=== PATIENT | female | born 1970 | race Caucasian/White ===

== ENCOUNTER 2021-08-01 19:10 | Outpatient (REF) | payer OTHER, SELFPAY ==
[2021-08-03 13:44] LABS: COVID-19 RT-PCR UVMMC Result Presumptive Positive (Negative)
== END 2021-08-01 19:11 | disposition home or self-care (01) ==
LOC: LBN 19:10
PROVIDERS: Visit Provider Physician Assistant Medical
DX: Z20.822 Contact with and (suspected) exposure to COVID-19 (principal); R05.8 Other specified cough
CPT/HCPCS: U0003

== ENCOUNTER 2021-08-05 16:36 | Outpatient (REF) | payer OTHER, SELFPAY ==
[2021-08-06 13:55] LABS: COVID-19 RT-PCR UVMMC Result Presumptive Positive (Negative)
== END 2021-08-05 16:37 | disposition home or self-care (01) ==
LOC: LBN 16:36
PROVIDERS: Visit Provider Physician Assistant Medical
DX: Z20.822 Contact with and (suspected) exposure to COVID-19 (principal); J40 Bronchitis, not specified as acute or chronic
CPT/HCPCS: U0003

== ENCOUNTER 2024-05-16 16:13 | Outpatient (REF) | payer BC, SELFPAY ==
[2024-05-16 17:32] LABS: Hemoglobin A1C 5.6 % (<5.7)
[2024-05-16 17:33] LABS: Calculated LDL 164 mg/dL (<100); Cholesterol 253 mg/dL (<200); HDL Cholesterol 69 mg/dL (40-60); Triglyceride 102 mg/dL (<150)
== END 2024-05-16 16:14 | disposition home or self-care (01) ==
LOC: NCHCN 16:13
PROVIDERS: Visit Provider Nurse Practitioner Family
DX: E66.9 Obesity, unspecified (principal)
CPT/HCPCS: 80061; 83036

== ENCOUNTER 2024-05-18 02:13 | Outpatient (CLI) | payer BC, SELFPAY ==
--- NOTE | 2024-05-18 | DI.MAMMO_ITS ---
Exam(s) MAMMO SCREENING EXAM: MAMMO SCREENING CLINICAL HISTORY: SCREENING, Z12,31 TECHNIQUE: Bilateral full field digital CC and MLO mammographic images were obtained with 3D tomosyn thesis and utilizing computer aided detection (CAD). COMPARISON: Available for comparison. FINDINGS: Masses/Architectural Distortion: None seen. Microcalcifications: No suspicious pleomorphic-type are seen. Skin Thickening/Nipple Retraction: None. IMPRESSION: 1. No significant interval change with no specific features of malignancy noted. 2. Unless there is more urgent need, screening mammography is recommended, as per [place] [employer] guidelines. BI-RADS Category 1 - Negative Breast Density - Category B - Scattered areas of fibroglandular density Breast density category C or D implies that the patient has dense breast tissue. Dense breast tissue is very common and is not abnormal but dense breast tissue can make it harder to find cancer on a ma mmogram. Also, dense breast tissue may increase their breast cancer risk. This information about the result of the mammogram report was provided to the patient to raise their awareness. Use this report when you speak with the patient about their risks for breast cancer, which includes their family hist ory. At that time, you may recommend for more screening tests (Ultrasound or MRI) as they might be us eful based on their risk. A negative radiographic report should not delay biopsy if a dominant or clinically suspicious mass is present. Up to ten percent of cancers are not identified on mammography. A negative report may reinforce clinical impression. Adenosis and dense breasts may obscure an underlying neoplasm. False positive reports average 6 to 10%. Patient will receive a letter notifying them of these results.
--- NOTE | 2024-05-18 15:55 | DI.RAD_ITS ---
Exam(s) XR HAND RT COMPLETE EXAM: XR HAND RT COMPLETE CLINICAL HISTORY: RT HAND PAIN,M79.641. TECHNIQUE: 2D digital imaging was performed. COMPARISON: No exams were available for comparison FINDINGS: 3 views No evidence of acute fracture or subluxation nor abnormal soft tissue calcifications. Bone density a ppears normal. No osseous lesions nor erosions evident. No obvious degenerative changes. IMPRESSION: No significant osseous findings in the right hand. DATA REPOSITORY: RADIATION DOSE DELIVERED:
--- NOTE | 2024-05-18 15:55 | DI.RAD_ITS ---
Exam(s) XR HAND LT COMPLETE EXAM: XR HAND LT COMPLETE CLINICAL HISTORY: LT HAND PAIN, M79.642. TECHNIQUE: 2D digital imaging was performed. COMPARISON: CR XR HAND RT COMPLETE from 05/18/2024 FINDINGS: 3 views No evidence of acute fracture nor subluxation nor abnormal soft tissue calcifications. Bone density is normal. No osseous lesions nor erosions evident. There are mild degenerative changes in the DIP joint of the 4th-ring finger. Other DIP joints appear unremarkable. IMPRESSION: Mild degenerative changes in the DIP joint of the 4th-ring finger. No other radiographic findings in the left hand. DATA REPOSITORY: RADIATION DOSE DELIVERED:
== END 2024-05-18 02:33 ==
LOC: DI 02:13
PROVIDERS: Visit Provider Nurse Practitioner Family
DX: M19.041 Primary osteoarthritis, right hand (principal); M19.042 Primary osteoarthritis, left hand
CPT/HCPCS: 77063; 77067; 73130

== ENCOUNTER 2024-07-18 09:22 | Outpatient (REF) | payer BC, SELFPAY ==
--- NOTE | 2024-07-18 08:15 | PAPFT_PTH ---
PATIENT: Donya Diaz LOC: [facility]#:[id number] AGE/SX: 54/F ROOM: RE07/18/[address]: Clara Schmidt : 1970 BED: DIS: 07/18/2024 SPEC #: [id number] RECD: 07/18/24 18:17 STATUS: ARUN REQ #: [id number] JACOB: 07/18/24 08:[address]: Clara Schmidt DEPT: [facility] Cytology RECD BY: [place] Tissues: 1 - CX/ENDOCX FOR PAP SMEARS Procedures: PAP THIN PREP/[facility] Screening HPV DNA PROBE Comments: [id number] (HPV 16 & 18/45)
== END 2024-07-18 09:23 | disposition home or self-care (01) ==
LOC: NCHCN 09:22
PROVIDERS: PCP Nurse Practitioner Family; Visit Provider Nurse Practitioner Family
DX: Z00.00 Encounter for general adult medical examination without abnormal findings (principal); Z12.4 Encounter for screening for malignant neoplasm of cervix; Z01.419 Encounter for gynecological examination (general) (routine) without abnormal findings
CPT/HCPCS: 88142; 87624

== ENCOUNTER 2024-11-14 08:39 | Outpatient (CLI) | payer BC, SELFPAY ==
--- NOTE | 2024-11-14 08:46 | DI.RAD_ITS ---
Exam(s) XR HIP LT COMPLETE AP PELVIS EXAM: XR HIP LT COMPLETE AP PELVIS CLINICAL HISTORY: eval L hip pain, ? OA. TECHNIQUE: 2D digital imaging was performed. Two views. COMPARISON: No exams were available for comparison FINDINGS: BONES: No acute fracture is present. No bony destructive lesion is seen. Enthesophytes at the greater trochanters. JOINTS: No dislocation present. The hip joint spaces are maintained. There is mild bilateral acetabular spurring. SOFT TISSUE: Normal. IMPRESSION: Mild degenerative changes of the hips. DATA REPOSITORY: RADIATION DOSE DELIVERED:
== END 2024-11-14 08:40 | disposition home or self-care (01) ==
LOC: DIORS 08:40
PROVIDERS: PCP Nurse Practitioner Family; Visit Provider Student in an Organized Health Care Education/Training Program
DX: M25.552 Pain in left hip (principal)
CPT/HCPCS: 73502